=== PATIENT | female | born 1935 ===

== ENCOUNTER 2018-05-05 14:01 | Outpatient (CLI) | payer MEDICARE, BC ==
--- NOTE | 2018-05-05 15:18 | RAD ---
LUMBAR SPINE 3 VIEWS: HISTORY: Low back pain. COMPARISON: None. FINDINGS: There are 5 [id number] lumbar-type vertebrae. There is advanced facet arthropathy at L4-5 and L 5-S1. Chronic-appearing superior end plate deformity is present at L2. 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 There is narrowing of the intraspinous space from L2-3 to L3-4 with sclerosis and subcortical cyst fo rmation. Moderate vascular calcifications of the aorta. The sacral struts are intact. Small phleboliths in t he pelvis. No abnormal calcifications projecting over the renal shadows. IMPRESSION: 1. Moderate spondylosis. 2. Degenerative grade I L4 over L5 anterolisthesis approximately 3 mm. 3. Narrowing of interspinous spaces from L2-L4. POS: [facility] [place]
== END 2018-05-05 14:02 | disposition home or self-care (01) ==
LOC: SCSRAD 14:01
PROVIDERS: ATTEND Nurse Practitioner Family
DX: M54.42 Lumbago with sciatica, left side (principal); M54.41 Lumbago with sciatica, right side; M47.816 Spondylosis without myelopathy or radiculopathy, lumbar region; M43.16 Spondylolisthesis, lumbar region; M48.061 Spinal stenosis, lumbar region without neurogenic claudication
CPT/HCPCS: 72100